=== PATIENT | female | born 1960 | race Caucasian/White ===

== ENCOUNTER → 2018-02-19 | Outpatient (CLI) | payer BC ==
[2014-07-02 21:02] VITALS: BP 114/69
[~2018-02-19] MED LIST: CHANTIX STARTING1 MG PO; PROVENTIL0.09 MG/A1 IH
== END ==
LOC: MAMMO 10:42
DX: Z12.31 Encounter for screening mammogram for malignant neoplasm of breast (principal)

== ENCOUNTER → 2018-05-22 | Outpatient (CLI) | payer BC ==
[2014-07-02 21:02] VITALS: BP 114/69
== END ==
LOC: RAD 16:00 → MAMMO 16:00
DX: M48.56XA Collapsed vertebra, not elsewhere classified, lumbar region, initial encounter for fracture (principal)

== ENCOUNTER → 2019-10-28 | Outpatient (CLI) | payer BC ==
[2014-07-02 21:02] VITALS: BP 114/69
== END ==
LOC: MAMMO 13:44
DX: Z12.31 Encounter for screening mammogram for malignant neoplasm of breast (principal)

== ENCOUNTER → 2021-06-21 | Outpatient (CLI) | payer BC | LOC: MAMMO 09:50 | DX: Z12.31 Encounter for screening mammogram for malignant neoplasm of breast (principal) ==

== ENCOUNTER → 2023-03-28 | Outpatient (CLI) | payer BC | LOC: MAMMO 10:30 | DX: Z12.31 Encounter for screening mammogram for malignant neoplasm of breast (principal) ==

== ENCOUNTER → 2024-02-11 | Day surgery (SDC) | payer BC | END | disposition home or self-care (01) | LOC: MSO 08:30 | DX: Z12.11 Encounter for screening for malignant neoplasm of colon (principal); K63.5 Polyp of colon; K57.30 Diverticulosis of large intestine without perforation or abscess without bleeding; E66.01 Morbid (severe) obesity due to excess calories; Z87.891 Personal history of nicotine dependence; Z85.42 Personal history of malignant neoplasm of other parts of uterus; Z79.82 Long term (current) use of aspirin | CPT/HCPCS: 00812; J2704; J7120 ==

== ENCOUNTER → 2024-03-28 | Outpatient (CLI) | payer BC | LOC: MAMMO 10:47 | DX: Z12.31 Encounter for screening mammogram for malignant neoplasm of breast (principal) ==